=== PATIENT | male | born 1950 | race Caucasian/White ===

== ENCOUNTER 2020-06-16 10:08 | Day surgery (SDC) | payer MEDICARE, BC ==
[~2020-06-16] VITALS: Ht 172.7 cm; Wt 84.4 kg
[~2020-06-16 10:08] MED LIST: ALFU10 PO; ASPI325 PO; ASPI81CH PO; ASPI81EC PO; ATOR10 PO; ATOR40TA PO; AVODART PO; CHOL10002; CYCL10 PO; ERGO400 PO; FISH OIL 1,2001 EAC7 PO; FISH1000 PO; GLUC500; GLUC500 PO; Garlic1 EAC1; HYDACE10B; IBUP200 PO; LANS15EC; LIPITOR PO; Lipo-Flavonoid1 EACH; MAXIDE PO; METAMUCIL POWD575 GM PO; NIAC500; OMEP20ER PO; Omeprazole20 M1; PSYL5.85P; RANI150 PO; Saw Palmetto C1 EACH; Saw Palmetto80 MG; TERB250 PO; TYLENOL ARTHRITIS PO
== END 2020-06-16 13:00 | disposition home or self-care (01) ==
LOC: ORSCSDS 10:08
PROVIDERS: Internal Medicine Gastroenterology
PROC: 0DBM8ZX Excision of Descending Colon, Via Natural or Artificial Opening Endoscopic, Diagnostic (ICD-10-PCS; principal; 2020-06-16 11:30)
PROC: 0DBN8ZX Excision of Sigmoid Colon, Via Natural or Artificial Opening Endoscopic, Diagnostic (ICD-10-PCS; principal; 2020-06-16 11:30)
PROC: 0DBK8ZX Excision of Ascending Colon, Via Natural or Artificial Opening Endoscopic, Diagnostic (ICD-10-PCS; principal; 2020-06-16 11:30)
DX: Z12.11 Encounter for screening for malignant neoplasm of colon (principal); Z86.010 Personal history of colon polyps; D12.2 Benign neoplasm of ascending colon; K63.5 Polyp of colon; K57.30 Diverticulosis of large intestine without perforation or abscess without bleeding; K21.9 Gastro-esophageal reflux disease without esophagitis; Z79.899 Other long term (current) drug therapy
CPT/HCPCS: 88305; J2704; J7120

== ENCOUNTER → 2020-10-23 | Outpatient (CLI) | payer MEDICARE ==
[2020-10-25 15:33] LABS: CORONAVIRUS (COVID19) CSH-NRL Negative (Negative)
== END ==
LOC: LAB 13:45 → LAB SHORT 13:45
PROVIDERS: Nurse Practitioner Family
DX: Z20.822 Contact with and (suspected) exposure to COVID-19 (principal)
CPT/HCPCS: U0003

== ENCOUNTER → 2023-08-29 | Outpatient (CLI) | payer MEDICARE | LOC: LAB 07:59 → LAB SHORT 07:59 | DX: B35.1 Tinea unguium (principal) | CPT/HCPCS: 88305; 88312 ==

== ENCOUNTER → 2023-10-28 | Outpatient (CLI) | payer MEDICARE ==
[2023-10-28 12:43] LABS: BASOPHILS ABSOLUTE AUTO 0.08 K/mm3 (0.00-0.23); BASOPHILS PERCENT AUTO 1 % (0-2); EOSINOPHILS ABSOLUTE AUTO 0.13 K/mm3 (0.00-0.68); EOSINOPHILS PERCENT AUTO 2 % (0-6); Hematocrit 40.7 % (37.0-53.0); Hemoglobin 13.9 g/dL (13.5-17.5); IMMATURE GRAN ABSOLUTE AUTO 0.04 K/mm3 (0.00-0.10); IMMATURE GRAN PERCENT AUTO 0 % (0-1); LYMPHOCYTES ABSOLUTE AUTO 2.58 K/mm3 (0.84-5.20); LYMPHOCYTES PERCENT AUTO 29 % (21-46); MONOCYTES ABSOLUTE AUTO 0.54 K/mm3 (0.16-1.47); MONOCYTES PERCENT AUTO 6 % (4-13); Mean Corpuscular HGB 31.8 pg (26.0-34.0); Mean Corpuscular HGB Conc 34.2 g/dL (31.5-36.5); Mean Corpuscular Volume 93 fL (80-100); Mean Platelet Volume 8.8 fL (9.1-12.4); NEUTROPHILS ABSOLUTE AUTO 5.57 K/mm3 (1.96-9.15); NEUTROPHILS PERCENT AUTO 62 % (41-73); Platelet Count 231 K/mm3 (150-400); RDW Coefficient Variation 12.5 % (11.7-14.2); RDW Standard Deviation 42.5 fL (35.1-46.3); Red Blood Cell Count 4.37 M/mm3 (4.30-5.90); White Blood Cell Count 8.94 K/mm3 (4.00-11.30)
[2023-10-28 13:07] LABS: Albumin, Blood 3.8 g/dL (3.4-5.0); Albumin/Globulin Ratio 1.1 (0.8-1.8); Bilirubin, Total 0.7 mg/dL (0.1-1.0); Bun/Creatinine Ratio 20.8 (12.0-20.0); Calcium, Blood 9.1 mg/dL (8.5-10.1); Creatinine, Blood 1.01 mg/dL (0.60-1.20); Globulin, Blood 3.4 g/dL (2.2-4.0); Potassium, Blood 3.4 mmol/L (3.5-5.5); Total Protein, Blood 7.2 g/dL (6.4-8.2)
== END | disposition home or self-care (01) ==
LOC: LAB 12:37 → LAB SHORT 12:37
PROVIDERS: Chiropractor
DX: K62.5 Hemorrhage of anus and rectum (principal)
CPT/HCPCS: 80053; 85025

== ENCOUNTER 2023-11-17 08:27 | Day surgery (SDC) | payer MEDICARE ==
[~2023-11-17] VITALS: Ht 172.7 cm; Wt 83.6 kg
[~2023-11-17 08:27] MED LIST changes: +Aspir 8181 MG PO; +B-121000 MC7 PO; -ERGO400 PO; -METAMUCIL POWD575 GM PO; +METAMUCIL POWD798 GM PO; +OMEGA-3 FISH O1 EAC6 PO; +TAMS.4ER PO; +TIMO.5OPSO BOTHEYES; +Vitamin D1000 UNI1 PO
[2023-11-17] MEDS ORDERED: Lactated Ringer's 1,000 ML IV ONE ×2 (08:44→09:27)
[2023-11-17] MEDS ORDERED: propofoL 50 ML IV ONE ×2 (08:44→10:38)
[2023-11-17 11:21] VITALS: BP 119/83
== END 2023-11-17 11:16 | disposition home or self-care (01) ==
LOC: ORSCSDS 08:27
PROVIDERS: Surgery
PROC: 0DBK8ZX Excision of Ascending Colon, Via Natural or Artificial Opening Endoscopic, Diagnostic (ICD-10-PCS; principal; 2023-11-17 10:00)
PROC: 0DBN8ZX Excision of Sigmoid Colon, Via Natural or Artificial Opening Endoscopic, Diagnostic (ICD-10-PCS; principal; 2023-11-17 10:00)
PROC: 0DBM8ZX Excision of Descending Colon, Via Natural or Artificial Opening Endoscopic, Diagnostic (ICD-10-PCS; principal; 2023-11-17 10:00)
DX: K62.5 Hemorrhage of anus and rectum (principal); Z86.010 Personal history of colon polyps; K63.5 Polyp of colon; K57.30 Diverticulosis of large intestine without perforation or abscess without bleeding; E78.5 Hyperlipidemia, unspecified; Z79.899 Other long term (current) drug therapy; Z79.82 Long term (current) use of aspirin
CPT/HCPCS: 88305; J2704; J7120

== ENCOUNTER 2024-05-27 18:09 | Emergency (ER) | payer MEDICARE ==
[~2024-05-27] VITALS: Ht 172.7 cm; Wt 80.7 kg
[2024-05-27 18:18] VITALS: BP 155/99
[2024-05-27] MEDS ORDERED: Trimethoprim/Sulfamethoxazole DS Tab PO ONE (18:55)
[2024-05-27] MEDS ORDERED: Amoxicillin/Clavulanate K 875 MG Tab PO ONE (18:55)
== END 2024-05-27 18:59 | disposition home or self-care (01) ==
LOC: ER 18:09
DX: L03.213 Periorbital cellulitis (principal); E78.00 Pure hypercholesterolemia, unspecified; K21.9 Gastro-esophageal reflux disease without esophagitis; Z87.891 Personal history of nicotine dependence; Z79.82 Long term (current) use of aspirin; Z79.899 Other long term (current) drug therapy
CPT/HCPCS: 99282; A9270